=== PATIENT | female | born 1985 | race Caucasian/White ===

== ENCOUNTER 2023-04-15 13:02 | Emergency (ER) | payer OTHER, SELFPAY ==
[2023-04-15 13:08] VITALS: BP 105/74; PULSE 95; RESP 16; TEMP 36.4; O2SAT 100
[2023-04-15 13:16] VITALS: BP 105/74; PULSE 95; RESP 16; TEMP 36.4; O2SAT 100
--- NOTE | 2023-04-15 13:32 | ED.URI ---
HPI - URI/Sore Throat General Chief Complaint: Upper Respiratory Infection Stated Complaint: congestion,sinus pressure Time Seen by Provider: 04/15/23 13:32 Source: patient and RN notes reviewed Mode of arrival: ambulatory Limitations: no limitations History of Present Illness HPI Narrative: 37-year-old female presented for complaint of sinus congestion and pressure for 3 months. Endorses sinus pressure is worse to the right eye, ear and jaw. States she has had green drainage when blowing nose today. States she has head a headache for 3 months. Patient is currently 14 weeks gestation. She is taking claritin for symptoms. Patient was seen 3 weeks ago for sore throat, in addition to these symptoms, tested negative for strep. Denies cough, shortness breath, wheezing, vomiting, diarrhea, fevers or chills. MD elicited complaint: cough Related Data Home Medications Medication Instructions Recorded Confirmed prenat.vits,stevenson,uha-nicx-lzzco 1 tablet PO DAILY 04/15/23 04/15/23 Allergies Allergy/AdvReac Type Severity Reaction Status Date / Time No Known Allergies Allergy Mild Unverified 04/15/23 13:14 Review of Systems Review of Systems: CONSTITUTIONAL: Denies malaise, chills, sweats, fever EYES: Denies visual changes, redness, or discharge ENT: Reports rhinorrhea, congestion, sinus pain, otalgia CARDIOVASCULAR: Denies chest pain, palpitations, edema RESPIRATORY: Reports post nasal drainage. Denies dyspnea GASTROINTESTINAL: Denies abdominal pain, nausea, vomiting, diarrhea SKIN: Denies rash or itching MUSCULOSKELETAL: Denies myalgia NEUROLOGIC: Reports headache PMFSH Past Medical History Medical History (Updated 04/15/23 @ 13:50 by Raegan Ramirez, LORRI) No pertinent past medical history Exam Narrative: GENERAL: Mildly ill-appearing, nontoxic no acute distress. HEAD: Normocephalic EYES: PERRLA, conjunctivae clear ENT: Mucous membranes moist. TM pearly jones with dull light reflex bilaterally; no tragal tenderness. Oropharynx normal without lesions or exudate NECK: Supple. No lymphadenopathy CHEST: Clear to auscultation, breath sounds equal. No wheezing, rhonchi, rales, or stridor. No respiratory distress, speaks in full sentences. HEART: Regular rate and rhythm. No murmur heard. SKIN: Warm, dry, no rash. NEURO: Alert and oriented x3. PSYCH: Normal mood and affect Course Course Emergency Course: Patient is aware of diagnosis, understands and agrees to treatment plan. Anticipatory guidance given. Patient agrees to follow-up as directed and is aware of reasons to seek care at the emergency department. Portions of this record may have been created with voice recognition software Level of Care: Express Care Visit Vital Signs Vital signs: Vital Signs Temperature 97.6 F 04/15/23 13:08 Pulse Rate 95 04/15/23 13:08 Respiratory Rate 16 04/15/23 13:08 Blood Pressure 105/74 04/15/23 13:08 Pulse Oximetry 100 04/15/23 13:08 Oxygen Delivery Room Air 04/15/23 13:08 Temperature 97.6 F 04/15/23 13:16 Pulse Rate 95 04/15/23 13:16 Respiratory Rate 16 04/15/23 13:16 Blood Pressure 105/74 04/15/23 13:16 Pulse Oximetry 100 04/15/23 13:16 Oxygen Delivery Room Air 04/15/23 13:16 reviewed MDM - URI/Sore Throat MDM Narrative Medical decision making narrative: Discussed physical exam findings. Patient is agreeable to try an antibiotic at this time as symptoms have persisted x3 months. Advised supportive measures and signs/symptoms to go to the ER. Pt is appropriate for outpt treatment and f/u. She is scheduled with OBgyn next week. Differential Diagnosis Differential diagnosis: Likely upper respiratory infection, sinusitis and viral infection Discharge Plan Discharge Clinical Impression: Upper respiratory infection Qualifiers: URI type: unspecified URI Qualified Code(s): J06.9 - Acute upper respiratory infection, unspecified Patient Dispositio
== END 2023-04-15 13:47 | disposition home or self-care (01) ==
PROVIDERS: Emergency Provider Nurse Practitioner Family
DX: O99.512 Diseases of the respiratory system complicating pregnancy, second trimester (principal); Z3A.14 14 weeks gestation of pregnancy; J06.9 Acute upper respiratory infection, unspecified
CPT/HCPCS: 99203; G0463

== ENCOUNTER 2023-10-16 12:43 | Observation (INO) | payer OTHER, SELFPAY ==
--- NOTE | ~2023-10-16 | US_ITS ---
EXAMINATION: US OB limited w BPP DATE: 10/16/2023 17:06 INDICATION: EDWINA, FHR decel . TECHNIQUE: Real-time ultrasound of the pelvis was performed. COMPARISON: None. FINDINGS: There is a single living fetus in vertex presentation, longitudinal lie. The placenta is fundal, dis tant from the cervix. heart rate is 129 bpm. The amniotic fluid index is 15.9 cm, which is norm al (5th to 95th percentile is 7.1 to 21.4 cm). Biophysical profile performed by the technologist: breathing (30 sec sustained breathing in 30 minutes): 2 out of 2. movement (3 gross body movements in 30 minutes: 2 out of 2. tone (one episode of wormejb-wizkdirqz-udrphyx limb movement): 2 out of 2. Amniotic fluid pocket (2 cm): 2 out of 2. Total score: 8 out of 8. IMPRESSION: Single living fetus in vertex presentation. Biophysical profile 8 out of 8. Normal EDWINA. Reviewed, dictated and finalized at location K. L SOCIOLOGIST
[2023-10-16 16:01] VITALS: BP 118/72; PULSE 75
--- NOTE | 2023-10-16 16:20 | PM.OBTRLD ---
OB - Triage/Final Diagnosis Visit Information Date of evaluation: 10/16/23 Reason for evaluation: threatened labor Comments/Additional reasons for admission: I have assessed the risk for this patient, Ellie Barrios, and determined that she would benefit from observation care. Evaluation Vital signs: Vital Signs - 24 hr 10/16/23 16:01 Pulse Rate 75 Blood Pressure 118/72
[2023-10-16 17:08] VITALS: BMI 29.2
--- NOTE | 2023-10-16 17:09 | ADMGEN ---
This patient, Ellie Barrios, was admitted to Labor/Delivery/Recovery 106-00. Patient/family oriented to hospital policies and general routines including ID bracelet, bed and alarms, visiting hours, pain management, procedures, bathroom and other care routines, personal items, smoking policy, room service/diet, and visiting hours. Information on how to activate the Rapid Response Team has been discussed. Patient/Family are encouraged to report perceived risks to care and to ask questions if they do not understand what they are told or what they should do.
--- NOTE | 2023-10-16 17:34 | PC.NURSE ---
Patient back from ultrasound at 1700. Up to bathroom at this time. Patient refusing cervical exam. States that her contractions have remained same intensity and consistency throughout her time off of unit. Informed Dr. Isaac Poon of patient status and BPP/EDWINA results. BPP-07/02. EDWINA-15.9cm. Ok to d/c per doctors orders.
== END 2023-10-16 17:38 | disposition home or self-care (01) ==
PROVIDERS: Admitting Provider Obstetrics & Gynecology; Visit Provider Obstetrics & Gynecology
DX: O47.1 False labor at or after 37 completed weeks of gestation (principal); Z3A.40 40 weeks gestation of pregnancy
CPT/HCPCS: 76815; 76819; G0378; G0379

== ENCOUNTER 2023-10-16 23:10 | Inpatient (IN) | payer OTHER, SELFPAY ==
[2023-10-17] VITALS (10 sets, daily range): BP systolic 116–135; BP diastolic 68–85; PULSE 70–158; RESP 15–18; TEMP 36.7–37.1; O2SAT 95–100; BMI 29.2
[2023-10-17 01:52] LABS: Basophils Percent Auto 0.2 % (0.2-1.2); Eosinophils Percent Auto 0.2 % (0-4.4); Hematocrit 35.9 % (37.0-47.0); Hemoglobin 10.9 g/dL (12.0-15.0); Immature Granulocyte Absolute 0.09 K/mm3 (0.00-0.031); Immature Granulocyte Percent A 0.7 % (0-0.5); Lymphocytes Absolute Auto 2.89 K/mm3 (0.9-3.2); Lymphocytes Percent Auto 22.7 % (18.3-44.2); Mean Corpuscular HGB Conc 30.4 g/dl (32-36); Mean Corpuscular Hemoglobin 23.5 pg (26-34); Mean Corpuscular Volume 77.4 fl (80-100); Mean Platelet Volume 10.9 fl (7.4-10.4); Monocytes Absolute Auto 0.8 K/mm3 (0.1-0.6); Monocytes Percent Auto 6.5 % (2.6-8.5); Neutrophils Absolute Auto 8.9 K/mm3 (1.3-6.7); Neutrophils Percent Auto 69.7 % (45.5-73.1); Platelet Count Result 326 k/mm3 (150-375); Red Blood Count 4.64 M/mm3 (4.2-5.4); Red Cell Distribution Width 15.9 % (11.5-14.5); White Blood Count 12.7 K/mm3 (4.5-10.0)
[2023-10-17] MEDS: OXYTOCIN 30 UNITS/NS 500 ML 30 UNITS/500 ML BAG 999 UNITS IV CONT (02:02)
[2023-10-17] MEDS: LIDOCAINE HCL 1% LOCAL INJ 20 ML VIAL (02:05)
--- NOTE | 2023-10-17 02:14 | P.PCNOB_ITS ---
OB - Vaginal Delivery Note Procedure Delivery date: 10/17/23 Induction method: None Delivery monitor: External FHT and External Uterine Route of delivery: Episiotomy description: None Laceration Description: Perineal - 1st Degree Delivery repair: vicryl Specimen: No Quantitative Blood Loss (ml): 60 Anesthesia type: Local Disposition: Floor Complications: No immediate complications [place] Baby Date of : 10/17/23 Time of : 01:57 Weeks of gestation at delivery: 40 presentation: vertex position: Left Occiput Anterior Placenta delivery description: Spontaneous Cord Vessel Description: 3 Vessels score one minute: 9 score five minutes: 9
--- NOTE | 2023-10-17 02:17 | PM.IMHP ---
H&P: HPI History of Present Illness Date/Time: 10/17/23 02:17 Chief Complaint: Labor Narrative: 37-year-old 3 para 1 last menstrual period of 01/08/2023, EDC of 10/16/2023, presents at 41cm weeks gestation active labor. has been uncomplicated. [facility] Past Medical History Medical History No pertinent past medical history Family History Family History Sibling Ovarian cancer Mother Ovarian cancer Social History Social History Substance use: never Spiritual care concerns: No Meds Home Medications and Allergies Home Medications Medication Instructions Recorded Confirmed Type No Home Medications 10/16/23 10/16/23 History Allergies Allergy/AdvReac Type Severity Reaction Status Date / Time No Known Allergies Allergy Mild Verified 10/16/23 17:07 Exam Const: General: cooperative, healthy appearing and comfortable Nutritional Appearance: average body habitus Orientation/consciousness: oriented to person, oriented to place and oriented to time Resp: Effort & Inspection: normal respiratory effort Cardio: Rate: regular rate Rhythm: regular rhythm Heart sounds: S1 normal heart sound present and S2 normal heart sound present GI: Inspection: normal to inspection : External Female Exam: normal external appearance Speculum Exam - Vagina: normal appearance of the vagina Speculum Exam - Cervix: normal appearance of the cervix ( Complete cervix. FHTs were reassuring) H&P: Results Labs Labs: Short CBC 10/17/23 Range/Units 01:44 WBC 12.7 H (4.5-10.0) K/mm3 Hgb 10.9 L (12.0-15.0) g/dL Hct 35.9 L (37.0-47.0) % Plt Count 326 (150-375) k/mm3 Assessment and Plan Assessment and plan (1) Term : Code(s): Z34.90 - Encounter for supervision of normal , unspecified, unspecified trimester Status: Acute Plan spontaneous vaginal delivery expected
--- NOTE | 2023-10-17 02:20 | PM.DS ---
DS: Admitting Diagnosis Discharge Date 10/18/2023 Admitting Diagnosis term DS: Discharge Diagnosis Discharge Diagnosis (1) Term : Code(s): Z34.90 - Encounter for supervision of normal , unspecified, unspecified trimester Status: Acute DS: Summary Hospital Course Reason for hospitalization: labor at term Hospital Course: patient underwent spontaneous delivery on the early 02/11/2023. . Her hospital course was unremarkable. She remained afebrile. She was up, voiding without difficulty, eating regular ambulating, generally without complaints. Time Spent with Patient Time attestation: Total time spent providing and/or coordinating discharge services: Exam Const: General: cooperative, healthy appearing and comfortable Nutritional Appearance: average body habitus Orientation/consciousness: oriented to person, oriented to place and oriented to time Resp: Effort & Inspection: normal respiratory effort Cardio: Rate: regular rate Rhythm: regular rhythm Heart sounds: S1 normal heart sound present and S2 normal heart sound present GI: Inspection: normal to inspection DS: Data Data Completed and Pending Labs on day of discharge: Labs from last 24 hours 10/17/23 01:44 WBC 12.7 H RBC 4.64 Hgb 10.9 L Hct 35.9 L MCV 77.4 L MCH 23.5 L MCHC 30.4 L RDW 15.9 H Plt Count 326 MPV 10.9 H Immature Gran % (Auto) 0.7 H Neut % (Auto) 69.7 Lymph % (Auto) 22.7 [place] % (Auto) 6.5 Eos % (Auto) 0.2 Baso % (Auto) 0.2 Lymph # (Auto) 2.89 [place] # (Auto) 0.8 H Eos # (Auto) 0.0 Baso # (Auto) 0.0 Abs Immat Gran (auto) 0.09 H Absolute Neuts (auto) 8.9 H Absolute Nucleated RBC 0.0 Nucleated RBC % 0.0 RPR Pending Blood Type Pending Antibody Screen Pending Discharge Plan Discharge Attending physician on discharge: Dejan Rosen Discharging Clinician: Dejan Rosen Patient Disposition: Home, Self-Care Activity: may shower and pelvic rest Diet: regular Wound Care Instructions: follow printed instructions Discharge Instructions: Education: Mom and Baby Guide Given to: Mother Follow-Up: Call your delivering provider's office for an appointment to be seen in: 6 Weeks Mom and baby should come to the [facility] for the follow-up appointment. Appointment Date/Time: October 19, 2023 at 9:00 am What to expect at your follow-up visit: Blood Pressure Check Physical Assessment Call [phone] if you are unable to keep your appointment time. BREAST CARE: * Wear a snug supportive bra. * For engorgement discomfort: Breast Feeding: * Apply warm moist washcloths * Express milk as needed to relieve engorgement * Wear loose clothing Bottle Feeding: * May apply ice packs * For sore nipples: * Identify correct latch-on * Apply warm moist washcloths before and after nursing * Air dry nipples after nursing * May apply Lansinoh cream to nipples PERINEAL CARE: * Until bleeding stops, use your noe bottle after urinating * Change your pad frequently throughout the day * You may take sitz baths several times a day (fill your bathtub with warm water and soak for 20 minutes.) Do NOT bathe in the water * No tub baths until seen by your physician - You may shower ACTIVITY: * Rest as much as possible. * Do not exercise or lift anything heavier than your baby (such as laundry or other children.) * Avoid stairs or driving as much as possible. * Do not put anything into the vagina. No douching, tampons, or sexual activity until seen by physician. NOTIFY PHYSICIAN IF YOU HAVE ANY QUESTIONS OR IF ANY OF THE FOLLOWING SYMPTOMS OCCUR: * If your vaginal bleeding becomes foul smelling. * If your vaginal bleeding becomes more heavy than a period or if your bleeding changes from pink to bright red. However, you may pass an occasional walnut-sized
[2023-10-17] MEDS: IBUPROFEN 600 MG TABLET (02:45)
[2023-10-17] MEDS: ACETAMINOPHEN 500 MG TABLET 1000 MG (02:45)
[2023-10-17] MEDS: OXYTOCIN 30 UNITS/NS 500 ML 30 UNITS/500 ML BAG 125 UNITS IV CONT (03:00)
[2023-10-17] MEDS: BENZOCAINE 20% AER SPR (*SP) 56 GM CAN 1 SPRAY (03:30)
[2023-10-17] MEDS: WITCH HAZEL 40 PADS 1 PAD (04:05)
[2023-10-17] MEDS: DOCUSATE SODIUM 100 MG CAPSULE PO (08:09)
[2023-10-17] MEDS: MULTIVIT/MIN/PREN/FOL AC/IRON TABLET 1 TAB PO (08:09)
[2023-10-17] MEDS: POLYSACCHARIDE IRON COMPLEX 150 MG CAPSULE PO (08:09)
--- NOTE | 2023-10-17 11:34 | PM.OBPNVD ---
OB - PN: Subj Subjective Date/time seen: 10/17/23 11:34 Narrative: Pain OK. OB - PN: Obj Data Labs 10/17/23 01:44 Labs: Laboratory Results - last 24 hr 10/17/23 01:44 WBC 12.7 H RBC 4.64 Hgb 10.9 L Hct 35.9 L MCV 77.4 L MCH 23.5 L MCHC 30.4 L RDW 15.9 H Plt Count 326 MPV 10.9 H Immature Gran % (Auto) 0.7 H Neut % (Auto) 69.7 Lymph % (Auto) 22.7 [place] % (Auto) 6.5 Eos % (Auto) 0.2 Baso % (Auto) 0.2 Lymph # (Auto) 2.89 [place] # (Auto) 0.8 H Eos # (Auto) 0.0 Baso # (Auto) 0.0 Abs Immat Gran (auto) 0.09 H Absolute Neuts (auto) 8.9 H Absolute Nucleated RBC 0.0 Nucleated RBC % 0.0 Blood Type O Positive Antibody Screen Negative OB - PN A/P Plan Comments: A: PPD#1, doing well. P: Routine care. Exam Psych: Other: AVSS ABD soft, nontender, fundus firm EXT nontender
--- NOTE | 2023-10-17 16:49 | PC.NURSE ---
Report given to Marlene Medina RN
[2023-10-17] MEDS: IBUPROFEN 600 MG TABLET PO (17:59)
[2023-10-18 05:06] LABS: Hematocrit 29.2 % (37.0-47.0); Hemoglobin 8.7 g/dL (12.0-15.0)
[2023-10-18] MEDS: IBUPROFEN 600 MG TABLET PO (05:31)
[2023-10-18] MEDS: MULTIVIT/MIN/PREN/FOL AC/IRON TABLET 1 TAB PO (08:23)
[2023-10-18] MEDS: DOCUSATE SODIUM 100 MG CAPSULE PO (08:23)
[2023-10-18] MEDS: POLYSACCHARIDE IRON COMPLEX 150 MG CAPSULE PO (08:23)
[2023-10-18 09:40] VITALS: BP 116/75; PULSE 81; RESP 16; TEMP 36.5; O2SAT 100
--- NOTE | 2023-10-18 12:03 | PM.OBPNVD ---
OB - PN: Subj Subjective Date/time seen: 10/18/23 12:03 Narrative: Pain OK. Would like to go home. OB - PN: Obj Data Labs 10/18/23 04:19 Labs: Laboratory Results - last 24 hr 10/18/23 04:19 Hgb 8.7 L Hct 29.2 L OB - PN A/P Plan Comments: A: PPD#2, doing well. P: Home to f/u 6 weeks. Exam Psych: Other: AVSS ABD soft, nontender, fundus firm EXT nontender
[2023-10-21 14:53] LABS: Rapid Plasma Reagin Non-Reactive (NonReactive)
== END 2023-10-18 13:37 | disposition home or self-care (01) | DRG 807 ==
LOC: ANHLDR 10-17 02:22 → ANHOB2 10-18 07:38 → ANHLDR 10-21 08:34 → ANHOB2 10-21 08:34 → ANHOBPP 10-21 08:34
PROVIDERS: Admitting Provider Obstetrics & Gynecology; Visit Provider Obstetrics & Gynecology
DX: O62.3 Precipitate labor (principal); Z37.0 Single live birth; O70.0 First degree perineal laceration during delivery; Z3A.40 40 weeks gestation of pregnancy
CPT/HCPCS: 36415; 76815; 76819; 85014; 85018; 85025; 86592; 86850; 86900; 86901; A9270; G0378; G0379; J2590

== ENCOUNTER → 2023-12-10 08:54 | Outpatient (CLI) | payer OTHER, SELFPAY ==
--- NOTE | ~2023-12-10 | MMUS_ITS ---
EXAMINATION: MM diagnostic tho BI w taya, US breast BI complete HISTORY: Palpable left breast TECHNIQUE: Additional 3-D tomosynthesis images of the breasts were performed and synthetic 2-D images were generated. CAD analysis was submitted and interpreted. High resolution bilateral complete breas t ultrasound was performed. COMPARISON: None BREAST PARENCHYMAL COMPOSITION: The breasts are extremely dense, which lowers the sensitivity of mamm ography FINDINGS: MAMMOGRAPHIC FINDINGS: There are no suspicious masses, calcifications or architectural distortion in the breast to suggest m alignancy. ULTRASOUND: Complete bilateral US of all 4 quadrants of the breasts and retroareolar region was reviewed. Right breast: At 4:00, 4 cm from the nipple there is a 3 mm cyst. Left breast: At 2:00, 9 cm from the nipple in the area of palpable concern there is a lobulated parti ally cystic measuring 2.1 cm maximum dimension with internal vascularity. At 2:00, 10 cm from the nip ple there is a irregular shaped hypoechoic 9 mm mass without significant internal vascularity. IMPRESSION: 1. Complex left breast masses at 2:00, 9 cm from the nipple and 10 cm from the nipple. 2. Ultrasound-guided left breast biopsies recommended. BI-RADS category 4, suspicious findings. Reviewed, dictated and finalized at location A. APPLICATIONS DEVELOPER IMPRESSION: 1. Complex left breast masses at 2:00, 9 cm from the nipple and 10 cm from the nipple. 2. Ultrasound-guided left breast biopsies recommended. BI-RADS category 4, suspicious findings.
== END ==
PROVIDERS: PCP Obstetrics & Gynecology; Visit Provider Obstetrics & Gynecology
DX: N63.21 Unspecified lump in the left breast, upper outer quadrant (principal); R92.8 Other abnormal and inconclusive findings on diagnostic imaging of breast
CPT/HCPCS: 76641; 77062; 77066; G0279

== ENCOUNTER 2023-12-20 10:15 | Outpatient (CLI) | payer OTHER, SELFPAY ==
--- NOTE | ~2023-12-20 | MMUS_ITS ---
EXAMINATION: US breast biopsy LT w image, MM post biopsy invasive LT DATE: 12/20/2023 12:22 (accession [id number]), 12/20/2023 13:06 (accession [id number]) INDICATION: Breast-feeding patient presents for biopsy of a palpable mass in the upper outer quadrant of the left breast. Ultrasound-guided core biopsy is requested to evaluate for malignancy. TECHNIQUE AND FINDINGS: With real-time scanning, a mass described at the 2:00 location, 10 cm from the nipple somewhat blunte d with background tissue and was not identified as discrete mass. Attention was directed to the mass at the 2:00 location, 9 cm from the nipple. The risks and potential benefits of the procedure were di scussed with the patient including bleeding and infection. A time out was performed. The skin of the left breast was prepared and draped in usual sterile fashion. 1% lidocaine was used for superficial a nesthesia. 1% lidocaine with epinephrine was used for deep anesthesia. A vacuum-assisted biopsy needle was advanced through to the outer edge of the region of interest from a lateral approach utilizing sonographic guidance. A total of four tissue core samples were obtained through the lesion. After sampling, much of the cystic component of the mass had resolved. A tissue marker clip was then placed at the biopsy site. Hemostasis was achieved. A sterile bandage was applie d. The patient tolerated procedure well and there was no evidence of immediate complication. The patient was given verbal instructions to return to the Emergency Department in the event of severe breast pa in or rapid breast enlargement. A two view left breast mammogram was obtained to document tissue chad er clip placement. IMPRESSION: 1. Successful ultrasound-guided vacuum-assisted biopsy of left breast mass with tissue marker placeme nt. Reviewed, dictated and finalized at location A. IFICATION AND SELECTION SPECIALIST IMPRESSION: 1. Successful ultrasound-guided vacuum-assisted biopsy of left breast mass with tissue marker placement.
== END 2023-12-20 10:16 | disposition home or self-care (01) ==
LOC: ANHIMG 10:17
PROVIDERS: PCP Obstetrics & Gynecology; Visit Provider Surgery
DX: N63.20 Unspecified lump in the left breast, unspecified quadrant (principal)
CPT/HCPCS: 19083; 88305; A4648